=== PATIENT | male | born 1950 | race Asian ===

== ENCOUNTER 2018-02-13 07:24 | Day surgery (SDC) | payer OTHER ==
[2018-02-13] MEDS ORDERED: ECOTRIN PO ONE (07:37)
[2018-02-13] MEDS ORDERED: NACL 0.9% 500 ML 500 ML IV SCH (08:00)
[2018-02-13 08:20] LABS: Basophils % (Auto) 0.6 % (0.0-1.8); Eosinophils # (Auto) 0.5 K/mm3 (0.0-0.4); Eosinophils % (Auto) 6.8 % (0.0-4.3); Hematocrit 38.4 % (35.5-45.6); Hemoglobin 12.5 gm/dl (11.8-15.2); Lymphocytes # (Auto) 1.4 K/mm3 (1.2-5.4); Lymphocytes % (Auto) 18.9 % (13.4-35.0); Mean Corpuscular HGB Conc 33 % (32-34); Mean Corpuscular Hemoglobin 29 pg (28-32); Mean Corpuscular Volume 88 fl (84-94); Monocytes # (Auto) 0.7 K/mm3 (0.0-0.8); Monocytes % (Auto) 9.7 % (0.0-7.3); Platelet Count 202 K/mm3 (140-440); Red Blood Count 4.35 M/mm3 (3.65-5.03)
[2018-02-13 08:28] LABS: BUN/Creatinine Ratio 13; Blood Urea Nitrogen 16 mg/dL (9-20); Calcium 9.3 mg/dL (8.4-10.2); Hemolysis Index 26
[2018-02-13 08:29] LABS: INR 0.91 (0.87-1.13)
[2018-02-13 08:30] LABS: Partial Thromboplastin Time 25.3 Sec. (24.2-36.6)
[2018-02-13] MEDS ORDERED: HEPARIN/NS 5000 UNIT/500ML(CATH LAB) 1,000 ML IR ONE (09:31)
[2018-02-13] MEDS ORDERED: NITROGLYCERIN SYRINGE 0 ML ONE (09:32)
[2018-02-13] MEDS ORDERED: HEPARIN 10,000 UNITS/10 ML ONE (09:32)
[2018-02-13] MEDS ORDERED: CALAN ONE (09:32)
[2018-02-13] MEDS: VERSED ONE ×2 (10:35→10:44)
[2018-02-13] MEDS: XYLOCAINE 2% INFILTRATI ONE ×2 (10:35→10:45)
[2018-02-13] MEDS: SUBLIMAZE ONE ×2 (10:35→10:44)
--- NOTE | 2018-02-13 11:25 | Discharge Summary ---
Short Stay Discharge Plan Activity: advance as tolerated Weight Bearing Status: Partial Weight Bearing Diet: low fat, low cholesterol, low salt Wound: keep clean and dry Special Instructions: no heavy lifting (3 days) Follow up with: HERO ZEPEDA MD [Primary Care Provider] - 7 Days GRACIELA LEDESMA MD [Staff Physician] - 7 Days
--- NOTE | 2018-02-13 11:37 | Cardiac Catherization Report ---
REASON FOR PROCEDURE: The patient is a 67-year-old man who underwent coronary stenting of the LAD, 6 months ago at [facility], for a presentation of an acute anterolateral ST elevation myocardial infarction, complicated by ventricular fibrillation arrest. He presents now for cardiac catheterization in response to recurrent exertional chest pain. PROCEDURES: 1. Left heart catheterization. 2. Selective left and right coronary angiography. 3. Left ventricle angiography. The patient was prepped and draped in a sterile fashion after informed consent. The right femoral artery was entered using Seldinger technique, followed by placement of a 6-English sheath. Selective left and right coronary angiography was performed using #4 right and left Jessica catheters. A pigtail catheter was used for left ventricular catheterization and angiography. The catheters were removed, sheath removed, and hemostasis achieved using an Angio-Seal device. The patient was returned to the postprocedure unit in stable condition. There were no complications. FINDINGS: HEMODYNAMICS: Left ventricle end diastolic pressure was 18, following coronary angiography. Ascending aortic pressure was 135/71. There was no significant pressure gradient on pullback across the aortic valve. CORONARY ANGIOGRAPHY: The left main coronary artery was free of significant disease. A stent was visible, extending from the distal left main into the proximal to mid LAD. This stent was widely patent, no significant restenosis and a normal CHRISTOPHER 3 flow down the LAD. The rest of the LAD and diagonal branches were free of significant disease. Due to its proximal border placement within the distal left main, the LAD stent traverses the ostium of the circumflex. As a result, there is a 30-50% ostial narrowing of the circumflex due to "stent assisted". Despite the ostial narrowing, there is CHRISTOPHER 3 flow through the circumflex system, and the rest of the circumflex system is otherwise angiographically normal. The right coronary artery was a relatively small caliber but dominant vessel. This vessel contained a 30% luminal stenosis of its mid segment. Otherwise, the right coronary artery was free of significant disease. The left ventricle was mildly to moderately dilated. There was [id number] left ventricular systolic dysfunction, ejection fraction of 40-45%. There was moderate hypokinesis of the mid to distal anterior wall and apex. CONCLUSION: 1. Widely patent proximal LAD stent, extending into the distal left main. 2. Mild ostial narrowing of the circumflex system, resulting from compromise by the LAD stent. 3. Otherwise, mild nonobstructive residual disease. 4. Mild to moderate left ventricular systolic dysfunction, ejection fraction 40-45%, with regional wall motion abnormalities, consistent with prior LAD territory infarction. RECOMMENDATION: 1. Risk factor modification. 2. Medical therapy. JOB# [id number] JENNA/MODESTO LEWIS
[2018-02-13] MEDS ORDERED: NACL 0.9% 1000 ML 1,000 ML IV SCH (12:00)
[2018-02-13 14:13] VITALS: BP 125/66
== END 2018-02-13 15:10 | disposition home or self-care (01) ==
LOC: CATHLABREC 07:24
PROVIDERS: ATTEND Internal Medicine
DX: I25.10 Atherosclerotic heart disease of native coronary artery without angina pectoris (principal); I10 Essential (primary) hypertension; E03.9 Hypothyroidism, unspecified; E78.5 Hyperlipidemia, unspecified; Z95.5 Presence of coronary angioplasty implant and graft; Z79.82 Long term (current) use of aspirin; Z79.899 Other long term (current) drug therapy; Z82.49 Family history of ischemic heart disease and other diseases of the circulatory system
CPT/HCPCS: 36415; 80048; 85025; 85610; 85730; 93005; 93010; 93458; 99156; 99157; C1760; C1894; J1644; J2250; J3010; J7040; Q9967